=== PATIENT | female | born 1980 | race Caucasian/White ===

== ENCOUNTER 2017-05-06 19:42 | Emergency (ER) | payer OTHER ==
[2017-05-06] MEDS ORDERED: Levalbuterol 0.63MG/3ML NEB* UNIT OF USE INH ONE (20:36)
[2017-05-06] MEDS ORDERED: Ipratropium 0.5MG/2.5ML NEB* 0.5 MG/2.5 ML NEB.SOLN INH ONE (20:38)
--- NOTE | 2017-05-06 21:00 | UC ---
Respiratory Complaint HPI - HPI Summary HPI Summary: 37 yo female with asthma has been ill x 3 weeks has been wheezing cough (productive) ? fever chills malaise fatigue no n/v/d has a script of prednisone which she started about a week ago on 40 mg/d - History of Current Complaint Chief Complaint: UCRespiratory Stated Complaint: URI Time Seen by Provider: 05/06/17 20:25 Hx Obtained From: Patient Hx Last Menstrual Period: 10 days ago Onset/Duration: Gradual Onset, Lasting Weeks Timing: Constant Severity Initially: Mild Severity Currently: Moderate Pain Intensity: 3 Pain Scale Used: 0-10 Numeric Character: Cough: Productive Aggravating Factors: Exertion, Deep Breaths, Recumbent Position Alleviating Factors: Bronchodilator Associated Signs And Symptoms: Positive: Fever - ?, Chills, Wheezing - Allergies/Home Medications Allergies/Adverse Reactions: Allergies Allergy/AdvReac Type Severity Reaction Status Date / Time No Known Allergies Allergy Verified 05/06/17 20:07 PMH/Surg Hx/FS Hx/Imm Hx Previously Healthy: Yes Respiratory History: Asthma, Bronchitis - Surgical History Surgical History: Yes Surgery Procedure, Year, and Place: ABLASION - Family History Known Family History: Positive: Respiratory Disease - Social History Alcohol Use: Occasionally Substance Use Type: None Smoking Status (MU): Never Smoked Tobacco Review of Systems Constitutional: Fever - ?, Chills, Fatigue Skin: Negative Eyes: Negative ENT: Negative Respiratory: Cough Cardiovascular: Negative Gastrointestinal: Negative Genitourinary: Negative Motor: Negative Neurovascular: Negative Musculoskeletal: Negative Neurological: Negative Psychological: Negative Is Patient Immunocompromised?: No All Other Systems Reviewed And Are Negative: Yes Physical Exam Triage Information Reviewed: Yes Appearance: Well-Appearing, No Pain Distress, Well-Nourished Vital Signs: Initial Vital Signs Temp 98.2 F 05/06/17 20:03 Pulse 102 05/06/17 20:03 Resp 18 05/06/17 20:03 BP 133/72 05/06/17 20:03 Pulse Ox 100 05/06/17 20:03 Vital Signs Reviewed: Yes Eyes: Positive: Conjunctiva Clear ENT: Positive: Hearing grossly normal, Pharyngeal erythema, TMs normal, Uvula midline. Negative: Nasal congestion, Nasal drainage, TM bulging, TM dull, TM red, Tonsillar swelling, Tonsillar exudate, Trismus, Muffled voice, Hoarse voice , Dental tenderness, Sinus tenderness Neck: Positive: Supple, Nontender Respiratory: Positive: No respiratory distress, No accessory muscle use, Wheezing Cardiovascular: Positive: RRR, No Murmur Bowel Sounds: Positive: Present Musculoskeletal: Positive: ROM Intact, No Edema Neurological: Positive: Alert Psychological Exam: Normal Skin Exam: Normal UC Diagnostic Evaluation - Laboratory O2 Sat by Pulse Oximetry: 100 - normal/not hyposix - Radiology Xray Interpretation: No Acute Changes Radiology Interpretation Completed By: Radiologist Re-Evaluation - Re-Evaluation First Eval Re-Evaluation Time: 21:53 Change: Improved - lungs CTA Respiratory Course/Dx - Differential Dx/Diagnosis Provider Diagnoses: acute bronchitis with bronchospasm Discharge - Discharge Plan Condition: Stable Disposition: HOME Prescriptions: Azithromycin TAB* [Zithromax TAB*] 250 mg PO DAILY #4 tab Patient Education Materials: Acute Bronchitis (ED) Referrals: Srini Shrestha MD [Primary Care Provider] - 4 Days Additional Instructions: continue prednisone 40mg/day see your MD Wednesday recheck for new or worsening symptoms
--- NOTE | 2017-05-06 21:23 | RAD ---
INDICATION: Productive cough. Wheezing. COMPARISON: None TECHNIQUE: PA and lateral dual-energy views were obtained. FINDINGS: Bones/Soft Tissues: There are no acute bony findings. Cardiomediastinal: The cardiomediastinal silhouette is normal. Lungs: There are no infiltrates. Pleura: There are no pleural effusions. Other: None IMPRESSION: NO ACTIVE DISEASE.
[2017-05-06] MEDS ORDERED: Azithromycin TAB* 250 MG PO ONE (21:49)
[2017-05-06 22:01] VITALS: BP 129/72
== END 2017-05-06 22:00 | disposition home or self-care (01) ==
LOC: UCEAST 19:42
DX: J20.9 Acute bronchitis, unspecified (principal); J45.909 Unspecified asthma, uncomplicated
CPT/HCPCS: 71020; 99213; A9270-GY; G0463; J7614; J7644

== ENCOUNTER 2017-09-06 10:00 | Emergency (ER) | payer OTHER ==
[2017-09-06 10:52] VITALS: BP 120/72
--- NOTE | 2017-09-06 11:38 | UC ---
Josh Dewey Thomas, [facility] on 09/06/17 at 1117 . Skin Complaint HPI - HPI Summary HPI Summary: In Room Note: The patient is a 37 year old female complaining of a rash to her back and left rib area that began four days ago. She describes a burning, itchy pain. The pain is aggravated by touch. The patient also complains of cough and congestion. The patient denies sinus pain, nausea, vomiting, and diarrhea. She recently used a massage roller on her back. She has a history of contact dermatitis, but she describes this rash as dissimilar to her prior contact dermatitis. Note: The patient has a 4-day history of back and left rib area rash. Vital signs are stable: afebrile, Pulse Ox 100, 5/10 discomfort. Non-smoker. Occasional alcohol. Visit history: SVT with ablation. Noncontributory to present complaint. She has taken Zyrtect. She has a history of asthma. Nurses Note: Pt stated last rash started on back last 09/02 (states used a massage roller in area last Wednesday night). Pt states found spot on front L rib area. Tried hydrocortisone twice a day, states did not help. Pt states rash/ spots still there but now painful. Pt did have allergy shot this AM. 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 - History of Current Complaint Chief Complaint: UCRash Time Seen by Provider: 09/06/17 10:50 Stated Complaint: RASH Hx Obtained From: Patient Hx Last Menstrual Period: 08/12/17 Onset/Duration: Lasting Days - 4, Still Present Timing: Constant Current Severity: Moderate Pain Intensity: 5 Pain Scale Used: 0-10 Numeric Location: Other - Back, left rib area Character: Pruritus, Pain Aggravating Factor(s): Touch Alleviating Factor(s): Nothing Associated Signs & Symptoms: Positive: Cough, Rash. Negative: Nausea, Vomiting , Fever - Allergy/Home Medications Allergies/Adverse Reactions: Allergies Allergy/AdvReac Type Severity Reaction Status Date / Time No Known Allergies Allergy Verified 09/06/17 10:38 Review of Systems Skin: Rash Respiratory: Cough, Other - Congestion Is Patient Immunocompromised?: No All Other Systems Reviewed And Are Negative: Yes PMH/Surg Hx/FS Hx/Imm Hx Endocrine History: Other Other Endocrine History: Allergies Cardiovascular History: Other Other Cardiovascular History: SVT with ablation Respiratory History: Asthma Neurological History: Other Other Neurological History: Possible focal seizures - Surgical History Surgical History: Yes Surgery Procedure, Year, and Place: CARDIAC ABLASION 2004 - Family History Known Family History: Positive: Cardiac Disease, Diabetes, Respiratory Disease - Social History Occupation: Employed Full-time Lives: With Family Alcohol Use: Occasionally Substance Use Type: None Smoking Status (MU): Never Smoked Tobacco Household Exposure Type: Cigarettes Physical Exam - Summary Physical Exam Summary: Appearance: The patient is well-appearing, is in no pain distress, and is well- nourished. Eyes: Conjunctiva are clear. ENT: The hearing is grossly normal, the pharynx is normal, and the TMs are normal. There is no muffled or hoarse voice. Neck: The neck is supple and there is no lymphadenopathy. Respiratory: The chest is nontender. The lungs are clear, there are normal breath sounds, and there is no respiratory distress. Cardiovascular: Heart is regular rate and rhythm. There is no murmur. Abdomen: The abdomen is soft and nontender. There is no organomegaly. Bowel sounds: present Musculoskeletal: Strength is intact. The patient moves all extremities. Neurological: The patient is alert. Psychological: The patient displays age appropriate behavior Skin: At the level of T10 to T8 on the diagonal, there is an 8 cm oval rash by 2 cm wide that is erythematous and raised. To the left front of the abdomen there is a scattered rash approximately 3 cm by 2 cm, which is also raised. It deras to light touch and there are no vesicles. The rash is confined to one side of the body. Triage Information Reviewed: Yes Vital Signs: Initial Vital Signs Temp 98.6 F 09/06/17 10:41 Pulse 68 09/06/17 10:41 Resp 18 09/06/17 10:41 BP 120/72 09/06/17 10:41 Pulse Ox 100 09/06/17 10:41 Vital Signs Reviewed: Yes Course/Dx - Course Course Of Treatment: The patient is a 37 year old female complaining of a rash to her back and left rib area that began four days ago. She describes a burning , itchy pain. The patient has singles. I prescribed her Valtrex TID for several days. She will follow up if she sees any signs of infection or increasing pain. - Differential Diagnoses - Skin Complaint Differential Diagnoses: Contact Dermatitis, Other - Zoster - Diagnoses Provider Diagnoses: Zoster, left thorax abdomen Discharge - Sign-Out/Discharge Documenting (check all that apply): Discharge - patient is discharged home - Discharge Plan Condition: Stable Disposition: HOME Prescriptions: ValACYclovir (*) [Valtrex 1 GM(*)] 1 gm PO TID #21 tab MDD 3 Patient Education Materials: Shingles (ED) Referrals: Srini hSrestha MD [Primary Care Provider] - Additional Instructions: WE DISCUSSED: 1. You have shingles. 2. I have started you on Valtrex, one pill, 3 times a day for 7 days. 3. Ibuprofen and acetaminophen for pain. 4. Keep covered to decrease burning discomfort. 5. Follow up at any time for increased pain, redness, temperature or change in rash. This can take 2-6 weeks to go away but needs to be re-evaluated for any significant change. The documentation as recorded by the Josh monte Thomas accurately reflects the service I personally performed and the decisions made by me, Leon Portillo MD.
== END 2017-09-06 11:25 | disposition home or self-care (01) ==
LOC: UCEAST 10:00
DX: B02.9 Zoster without complications (principal); R05 Cough
CPT/HCPCS: 99212; G0463

== ENCOUNTER 2017-10-02 15:47 | Emergency (ER) | payer OTHER ==
[2017-10-02 15:56] VITALS: BP 116/71
--- NOTE | 2017-10-02 16:20 | UC ---
Respiratory Complaint HPI - HPI Summary HPI Summary: ONSET OF DRY HACKING COUGH YESTERDAY. PATIENT WITH HISTORY OF ASTHMA. INHALERS NOT HELPING. NO WHEEZE, NO FEVER. SHE HAS FATIGUE AND CHILLS WELL HEADACHE AND BODY ACHES/JOINT PAIN. UP-TO-DATE FLU SHOT THIS SEASON. - History of Current Complaint Chief Complaint: UCGeneralIllness Stated Complaint: COUGH/ BODY ACHES Time Seen by Provider: 10/02/17 16:12 Hx Obtained From: Patient Hx Last Menstrual Period: [id number] Onset/Duration: Gradual Onset, Lasting Days - 1 day Timing: Constant Severity Initially: Moderate Severity Currently: Moderate Pain Intensity: 3 Pain Scale Used: 0-10 Numeric Character: Cough: Nonproductive Aggravating Factors: Nothing Alleviating Factors: Nothing Associated Signs And Symptoms: Positive: Chills, URI. Negative: Dyspnea, Wheezing - Allergies/Home Medications Allergies/Adverse Reactions: Allergies Allergy/AdvReac Type Severity Reaction Status Date / Time No Known Allergies Allergy Verified 10/02/17 15:56 PMH/Surg Hx/FS Hx/Imm Hx - Additional Past Medical History Additional PMH: ALLERGIES Cardiovascular History: Cardiac Disease Respiratory History: Asthma - Surgical History Surgical History: Yes Surgery Procedure, Year, and Place: CARDIAC ABLASION 2004 - Family History Known Family History: Positive: Cardiac Disease, Hypertension, Diabetes, Respiratory Disease - Social History Alcohol Use: Occasionally Substance Use Type: None Smoking Status (MU): Never Smoked Tobacco Household Exposure Type: Cigarettes Review of Systems Constitutional: Fatigue Respiratory: Cough Cardiovascular: Negative Gastrointestinal: Negative Musculoskeletal: Arthralgia, Myalgia Neurological: Headache All Other Systems Reviewed And Are Negative: Yes Physical Exam Triage Information Reviewed: Yes Appearance: Well-Appearing, No Pain Distress, Well-Nourished Vital Signs: Initial Vital Signs Temp 99.1 F 10/02/17 15:52 Pulse 97 10/02/17 15:52 Resp 18 10/02/17 15:52 BP 116/71 10/02/17 15:52 Pulse Ox 98 10/02/17 15:52 Vital Signs Reviewed: Yes Eyes: Positive: Conjunctiva Clear ENT: Positive: Hearing grossly normal, Pharynx normal, TMs normal Neck: Positive: Supple, Nontender, No Lymphadenopathy Respiratory Exam: Normal Cardiovascular Exam: Normal Abdomen Description: Positive: Soft Musculoskeletal: Positive: No Edema Neurological: Positive: Alert Psychological: Positive: Age Appropriate Behavior Skin: Negative: rashes UC Diagnostic Evaluation - Laboratory O2 Sat by Pulse Oximetry: 98 Diagnostic Studies Comment: FLU B POSITIVE Respiratory Course/Dx - Differential Dx/Diagnosis Provider Diagnoses: INFLUENZA B Discharge - Sign-Out/Discharge Documenting (check all that apply): Discharge/Admit/Transfer - Discharge Plan Condition: Stable Disposition: HOME Prescriptions: Oseltamivir CAP* [Tamiflu CAP*] 75 mg PO BID #10 cap predniSONE TAB* [Deltasone TAB*] 50 mg PO DAILY #5 tab Patient Education Materials: Asthma (ED), Influenza (ED) Referrals: Srini Shrestha MD [Primary Care Provider] - If Needed Additional Instructions: SWAB POSITIVE FOR INFLUENZA B. TAMIFLU TWICE DAILY FOR 5 DAYS. OTC MEDS NEEDED FOR FEVER, BODY ACHES. STAY WELL HYDRATED AND RESTED. SEEK FOLLOW-UP IF YOU ARE NOT IMPROVING EXPECTED. WILL ALSO GIVE PREDNISONE TO COVER FOR ANY ASTHMA SYMPTOMS. CONTINUE YOUR INHALERS AT HOME PRESCRIBED. FOLLOW-UP WITH YOUR PCP IF NEEDED. - Billing Disposition and Condition Condition: STABLE Disposition: HOME
== END 2017-10-02 16:45 | disposition home or self-care (01) ==
LOC: UCEAST 15:47
DX: J10.1 Influenza due to other identified influenza virus with other respiratory manifestations (principal); I51.9 Heart disease, unspecified; J45.909 Unspecified asthma, uncomplicated
CPT/HCPCS: 87502; 99212; G0463

== ENCOUNTER 2017-12-26 09:07 | Emergency (ER) | payer OTHER ==
[2017-12-26 09:20] VITALS: BP 125/71
--- NOTE | 2017-12-26 09:28 | UC ---
Upper Extremity HPI - HPI Summary HPI Summary: This is lavell Krause documenting for attending Dr. Nancy Mcdonough MD. The patient is a 37 y/o F presenting to [facility] c/o bending her right third metacarpal on a children's slide yesterday at 15:00 causing pain and swelling to the hand rated 3/10 in severity, which has increased since onset. She describes the bending as "wrenching" and "hooking" her finger. The pain associated is described as an aching and pressure, not sharp, and there is not any numbness or tingling in the finger. The movement and ROM of the finger is less than normal, but she is able to bend the fingers, make a fist, and oppose the fingers with her thumb, although moving the finger side to side causes the most pain. She has been treating the swelling pain with intermittent icing and Ibuprofen to some relief. - History of Current Complaint Stated Complaint: RIGHT HAND PAIN Time Seen by Provider: 12/26/17 09:12 Hx Obtained From: Patient Hx Last Menstrual Period: 12/05/17 Onset/Duration: Sudden Onset, Lasting Hours - started yesterday, Still Present Pain Intensity: 3 Pain Scale Used: 0-10 Numeric Character: Aching - and pressure Aggravating Factor(s): Movement - moving side to side Alleviating Factor(s): Ice, OTC Meds - Ibuprofen Associated Signs And Symptoms: Positive: Swelling, Other - decreased ROM. Negative: Numbness/Tingling Body - Head: 1 - swelling and pain in right thrid finger - Allergies/Home Medications Allergies/Adverse Reactions: Allergies Allergy/AdvReac Type Severity Reaction Status Date / Time No Known Allergies Allergy Verified 10/02/17 15:56 PMH/Surg Hx/FS Hx/Imm Hx Other Endocrine History: NEGATIVE: diabetes Other Cardiovascular History: NEGATIVE: HTN - Surgical History Surgical History: Yes Surgery Procedure, Year, and Place: CARDIAC ABLASION 2004 - Family History Known Family History: Positive: Cardiac Disease, Hypertension, Diabetes, Respiratory Disease - Social History Alcohol Use: Occasionally Substance Use Type: None Smoking Status (MU): Never Smoked Tobacco Household Exposure Type: Cigarettes Review of Systems Motor: Decreased ROM - in fingers of right hand, Other - pain and swelling in right hand, especially at right third finger Neurovascular: Negative - numbness and tingling All Other Systems Reviewed And Are Negative: Yes Physical Exam - Summary Physical Exam Summary: Appearance: Well-appearing, Well-nourished Skin: Warm Eyes: Normal ENT: Normal Neck: Supple, nontender Respiratory: Clear to auscultation Cardiovascular: Regular rate, regular rhythm. Normal S1, S2. Abdomen: Soft, nontender Musculoskeletal: Normal, Strength/ROM Intact. Swollen and tenderness over third metacarpal. Generalized swelling on dorsal of right hand. Radial pulse 2+ on right. Neurological: Normal, A&Ox3 Psychiatric: Normal General: No acute distress Triage Information Reviewed: Yes Vital Signs: Initial Vital Signs Temp 99.3 F 12/26/17 09:12 Pulse 104 12/26/17 09:12 Resp 16 12/26/17 09:12 BP 125/71 12/26/17 09:12 Pulse Ox 97 12/26/17 09:12 Vital Signs Reviewed: Yes Diagnostics - Radiology Right Hand XR Xray Interpretation: No Acute Changes - 1. Soft tissue swelling over the dorsum of the hand most prominent at level of the metacarpal phalangeal joints. Negative for fracture or malalignment. Negative for significant arthropathic change. [facility] physician has reviewed this report. Radiology Interpretation Completed By: Radiologist Re-Evaluation - Re-Evaluation First Eval Re-Evaluation Time: 10:25 Change: Unchanged Comment: I spoke with the pt about negative XR results. She will be discharged home. She is agreeable with this plan. Upper Extremity Course/Dx - Differential Dx/Diagnosis Provider Diagnoses: right hand swelling,. right second and third metacarpal contusion Discharge - Sign-Out/Discharge Documenting (check all that apply): Patient Departure - Pt will be discharged home. - Discharge Plan Condition: Stable Disposition: HOME Patient Education Materials: Hand Sprain (ED) Referrals: Srini Shrestha MD [Primary Care Provider] - Additional Instructions: Rest, ice, compression, Elevation and Aleve PRN - Billing Disposition and Condition Condition: STABLE Disposition: Home
--- NOTE | 2017-12-26 10:15 | RAD ---
INDICATION: Pain at the second through fifth metacarpophalangeal joints of the RIGHT hand following injury. COMPARISON: No relevant prior exams available on the [facility] PACS for comparison. TECHNIQUE: AP, lateral, and oblique views RIGHT hand. REPORT AND IMPRESSION: #. Soft tissue swelling over the dorsum of the hand most prominent at level of the metacarpal phalangeal joints. Negative for fracture or malalignment. Negative for significant arthropathic change.
== END 2017-12-26 10:36 | disposition home or self-care (01) ==
LOC: UCEAST 09:07
DX: M79.89 Other specified soft tissue disorders (principal); S60.221A Contusion of right hand, initial encounter; X50.1XXA Overexertion from prolonged static or awkward postures, initial encounter; Y93.9 Activity, unspecified; Y92.9 Unspecified place or not applicable
CPT/HCPCS: 99212; G0463

== ENCOUNTER 2019-03-31 21:05 | Emergency (ER) | payer OTHER ==
--- OUTSIDE RECORDS SUMMARY | 2019-03-31 21:11 | XMS REPORT | Continuity of Care Document ---
:1980 External Reference #:[id number] Author Name Rafaela Heck PAPER [employer] MACHINE OPERATOR-C (transmitted by agent of provider Jonny Felix) Address [address] [place] [address] Care Team Providers Name Role Phone Catrachito Shrestha M.D. Care Team Information Military Lawyer [phone] Problems Active Problems Provider Date Mild persistent asthma Jonny Felix M.D. Onset: 09/26/2018 Uncomplicated moderate persistent Rafaela Uldrich, PAPER [employer] MACHINE OPERATOR-C Onset: 07/22/2017 asthma Exacerbation of moderate persistent Rafaela Venturadrich, PAPER [employer] MACHINE OPERATOR-C Onset: 11/04/2016 asthma Body mass index 30+ - obesity Parveen Silva M.D. Onset: 01/16/2016 Exacerbation of moderate persistent Kenzie Wolfgang, PAPER [employer] MACHINE OPERATOR-C Onset: 08/08/2015 asthma Allergic rhinitis due to animals Kenzie Wolfgang, PAPER [employer] MACHINE OPERATOR-C Onset: 08/08/2015 Allergic rhinitis due to pollen Kenzie Wolfgang, PAPER [employer] MACHINE OPERATOR-C Onset: 08/08/2015 Acute sinusitis Jonny Felix M.D. Onset: 04/01/2015 Uncomplicated moderate persistent Jonny Felix M.D. Onset: 04/01/2015 asthma Body mass index (BMI) 27.0-27.9, Jonny Felix M.D. Onset: 04/01/2015 adult Immunization Jonny Felix M.D. Onset: 04/01/2015 Cough Gabrielle Miller, PH.D, Onset: 08/20/2014 RPA-C Allergic rhinitis Jonny Felix M.D. Onset: 03/19/2014 Allergic asthma without status Jonny Felix M.D. Onset: 03/19/2014 asthmaticus Social History Type Date Description Comments Sex Unknown ETOH Use Currently consumes alcohol once per week Tobacco Use Start: Unknown Patient has never smoked Recreational Drug Use Denies Drug Use Smoking Status Reviewed: 03/29/18 Patient has never smoked Allergies, Adverse Reactions, Alerts Description No Known Drug Allergies Medications Active Medications SIG Qnty Indications Ordering Date Provider Prednisone 40mg for 3 days, qs Z23 Rafaela 03/27/2019 10mg Tablets 30mg for 3 days, Uldrich, P[employer]ER [employer] MACHINE OPERATOR-C 20 mg for 3 days, 10mg for 3 days and 5mg for 2 days Levalbuterol Tartrate take 2 puffs every 15units Rafaela 08/08/2018 4 hours as needed Uldrich, PAPER [employer] MACHINE OPERATOR-C 45mcg/Act Aerosol Qvar Redihaler 2 puff every 12 31.8gm Rafaela 03/29/2018 hour 90 days Uldrich, PAPER [employer] MACHINE OPERATOR-C 80mcg/Act Aerosol supply Xopenex inhale the 72units J45.40 Rafaela 08/15/2015 0.63mg/3ML contents of 1 vial Uldrich, PAPER [employer] MACHINE OPERATOR-C Nebulizer via nebulizer every 4 hours as needed for shortness of breath, wheezing Epipen 2-Nolan used as directed 2units J30.2 Rafaela 04/16/2014 for anaphylaxis Uldrich, PAPER [employer] MACHINE OPERATOR-C 0.3mg/0.3ML Solution Auto-Inject Fluticasone 1 squirt each 3units Jonny Felix, 03/19/2014 Propionate nostril daily 90 M.D. 50mcg/Act day supply Suspension Cyanocobalamin Unknown 1000mcg/ML Solution Cetirizine HCL 1 by mouth every 30tabs Unknown 10mg day Tablets Vitamin D Unknown (Cholecalciferol) 1000Unit Tablets Montelukast Sodium take 1 tablet 90tabs Rafaela 10mg daily Uldrich, PAPER CAP MACHINE OPERATOR-C Tablets Medications Administered in Office Medication SIG Qnty Indications Ordering Provider Date Injection Allergy Injection 09/26/2018 Injection Injection Allergy Injection 06/20/2018 Injection Injection Allergy Injection 06/10/2018 Injection Injection Allergy Injection 05/18/2018 Injection Injection Allergy Injection 04/11/2018 Injection Injection Allergy Injection 03/28/2018 Injection Injection Allergy Injection 02/21/2018 Injection Injection Allergy Injection 02/02/2018 Injection Injection Allergy Injection 01/17/2018 Injection Injection Allergy Injection 01/10/2018 Injection Injection Allergy Injection 12/29/2017 Injection Injection Allergy Injection 12/20/2017 Injection Injection Allergy Injection 12/13/2017 Injection Injection Allergy Injection 11/29/2017 Injection Injection Allergy Injection 11/22/2017 Injection Injection Allergy Injection 11/15/2017 Injection Injection Allergy Injection 11/08/2017 Injection Injection Allergy Injection 09/06/2017 Injection Injection Allergy Injection 08/20/2017 Injection Injection Allergy Injection 07/30/2017 Injection Injection Allergy Injection 07/22/2017 Injection Injection Allergy Injection 06/16/2017 Injection Injection Allergy Injection 04/12/2017 Injection Injection Allergy Injection 03/29/2017 Injection Injection Allergy Injection 03/08/2017 Injection Injection Allergy Injection 02/15/2017 Injection Injection Allergy Injection 02/03/2017 Injection Injection Allergy Injection 01/13/2017 Injection Injection Allergy Injection 01/06/2017 Injection Injection Allergy Injection 12/28/2016 Injection Injection Allergy Injection 12/14/2016 Injection Injection Allergy Injection 12/07/2016 Injection Injection Allergy Injection 11/30/2016 Injection Injection Allergy Injection 11/25/2016 Injection Celestone/Cortisone Jonny Felix M.D. 11/04/2016 [id number] 1 cc Injection Celestone/Cortisone KEMI Boone 11/04/2016 [id number] 1 cc Injection Injection Allergy Injection 10/12/2016 Injection Injection Allergy Injection 09/28/2016 Injection Injection Allergy Injection 09/16/2016 Injection Injection Allergy Injection 09/09/2016 Injection Injection Allergy Injection 08/31/2016 Injection Injection Allergy Injection 08/21/2016 Injection Injection Allergy Injection 08/14/2016 Injection Injection Allergy Injection 08/06/2016 Injection Injection Allergy Injection 07/29/2016 Injection Injection Allergy Injection 07/22/2016 Injection Injection Allergy Injection 07/13/2016 Injection Injection Allergy Injection 07/03/2016 Injection Injection Allergy Injection 06/24/2016 Injection Injection Allergy Injection 06/17/2016 Injection Injection Allergy Injection 06/10/2016 Injection Injection Allergy Injection 02/17/2016 Injection Injection Allergy Injection 02/03/2016 Injection Injection Allergy Injection 01/16/2016 Injection Injection Allergy Injection 01/06/2016 Injection Injection Allergy Injection 12/23/2015 Injection Injection Allergy Injection 12/11/2015 Injection Injection Allergy Injection 11/25/2015 Injection Injection Allergy Injection 11/11/2015 Injection Injection Allergy Injection 10/21/2015 Injection Injection Allergy Injection 10/07/2015 Injection Injection Allergy Injection 09/23/2015 Injection Injection Allergy Injection 09/16/2015 Injection Injection Allergy Injection 09/09/2015 Injection Injection Allergy Injection 09/02/2015 Injection Injection Allergy Injection 07/15/2015 Injection Injection Allergy Injection 05/29/2015 Injection Injection Allergy Injection 05/06/2015 Injection Injection Allergy Injection 04/22/2015 Injection Injection Allergy Injection 04/08/2015 Injection Injection Allergy Injection 03/04/2015 Injection Injection Allergy Injection 02/18/2015 Injection Injection Allergy Injection 01/28/2015 Injection Injection Allergy Injection 01/16/2015 Injection Injection Allergy Injection 01/02/2015 Injection Injection Allergy Injection 12/19/2014 Injection Injection Allergy Injection 12/10/2014 Injection Injection Allergy Injection 12/03/2014 Injection Injection Allergy Injection 11/26/2014 Injection Injection Allergy Injection 11/19/2014 Injection Injection Allergy Injection 11/05/2014 Injection Injection Allergy Injection 10/22/2014 Injection Injection Allergy Injection 10/15/2014 Injection Injection Allergy Injection 10/08/2014 Injection Injection Allergy Injection 10/01/2014 Injection Injection Allergy Injection 09/24/2014 Injection Injection Allergy Injection 09/17/2014 Injection Injection Allergy Injection 09/10/2014 Injection Injection Allergy Injection 09/03/2014 Injection Injection Allergy Injection 08/20/2014 Injection Injection Allergy Injection 08/13/2014 Injection Injection Allergy Injection 08/06/2014 Injection Injection Allergy Injection 07/30/2014 Injection Injection Allergy Injection 07/23/2014 Injection Injection Allergy Injection 07/11/2014 Injection Injection Allergy Injection 07/02/2014 Injection Injection Allergy Injection 06/25/2014 Injection Injection Allergy Injection 06/18/2014 Injection Injection Allergy Injection 06/11/2014 Injection Injection Allergy Injection 06/04/2014 Injection Injection Allergy Injection 05/28/2014 Injection Injection Allergy Injection 05/21/2014 Injection Injection Allergy Injection 05/14/2014 Injection Injection Allergy Injection 05/07/2014 Injection Injection Allergy Injection 04/30/2014 Injection Injection Allergy Injection 04/23/2014 Injection Injection Allergy Injection 04/16/2014 Injection Immunizations CPT Code Status Date Vaccine Lot # 16325 Given 02/05/2015 Pneumococcal Vaccine 74645 Given 04/05/2014 Influenza Vaccine 25545 Given Unknown Pneumococcal Vaccine 03804 Given Unknown Influenza Vaccine 39737 Given Unknown Influenza Vaccine 40885 Given Unknown Influenza Vaccine 33077 Given Unknown Influenza Vaccine Vital Signs Date Vital Result Comment 03/27/2019 11:07am Height 65.5 inches 5'5.50" Weight 197.00 lb Weight 89.359 kg Respiratory Rate 18 /min Heart Rate 90 /min Body Temperature 98.2 F O2 % BldC Oximetry 97 % BP Systolic 113 mmHg BP Diastolic 60 mmHg Asthma Control Test 14 Fractional Exhaled Nitric Oxide 15 BMI (Body Mass Index) 32.3 kg/m2 10/12/2018 10:51am Height 65.5 inches 5'5.50" Weight 195.00 lb Weight 88.452 kg Respiratory Rate 12 /min Heart Rate 78 /min Body Temperature 98.3 F O2 % BldC Oximetry 97 % BP Systolic 97 mmHg BP Diastolic 61 mmHg Asthma Control Test 14 BMI (Body Mass Index) 32.0 kg/m2 Results Description No Information Available Procedures Date Code Description Status 03/27/2019 47464 Nitric Oxide Gas Determination Completed 03/27/2019 82760 Ippb Completed 10/12/2018 10926 Ippb Completed 09/26/2018 58366 Injection Completed 09/26/2018 58703 Nitric Oxide Gas Determination Completed 09/26/2018 78324 Pre PFT Completed Medical Devices Description No Information Available Encounters Type Date Location Provider Dx Diagnosis Office Visit 03/27/2019 Meera Heck Z23 Encounter for 11:00a P[employer]ER [employer] MACHINE OPERATOR-C immunization J30.1 Allergic rhinitis due to pollen J30.2 Other seasonal allergic rhinitis J30.81 Allergic rhinitis due to animal (cat) (dog) hair and dander J30.89 Other allergic rhinitis J45.41 Moderate persistent asthma with (acute) exacerbation Office Visit 10/12/2018 11:00a [facility] Catherine Boone30.1 Allergic PAPER [employer] MACHINE OPERATOR-C rhinitis due to pollen J30.2 Other seasonal allergic rhinitis J30.81 Allergic rhinitis due to animal (cat) (dog) hair and dander J30.89 Other allergic rhinitis J45.41 Moderate persistent asthma with (acute) exacerbation Office Visit 09/26/2018 8:40a [place] Jonny Felix M.D. J30.1 Allergic rhinitis due to pollen J45.30 Mild persistent asthma, uncomplicated Assessments Date Code Description Provider 03/27/2019 Z23 Encounter for immunization Jonny Felix M.D. 03/27/2019 Z23 Encounter for immunization Rafaela Ulniharika, PAPER CAP MACHINE OPERATOR-C 03/27/2019 J30.1 Allergic rhinitis due to pollen Jonny Felix M.D. 03/27/2019 J30.1 Allergic rhinitis due to pollen Rafaela Uldrich, PAPER CAP MACHINE OPERATOR-C 03/27/2019 J30.2 Other seasonal allergic rhinitis Jonny Felix M.D. 03/27/2019 J30.2 Other seasonal allergic rhinitis Rafaela Uldrich, PAPER CAP MACHINE OPERATOR-C 03/27/2019 J30.81 Allergic rhinitis due to animal (cat) (dog) Jonny Felix M.D. hair and dander 03/27/2019 J30.81 Allergic rhinitis due to animal (cat) (dog) Rafaela Uldrich, PAPER CAP MACHINE OPERATOR-C hair and dander 03/27/2019 J30.89 Other allergic rhinitis Rafaela Uldrich, PAPER CAP MACHINE OPERATOR-C 03/27/2019 J45.41 Moderate persistent asthma with (acute) Rafaela Uldrich, PAPER CAP MACHINE OPERATOR-C exacerbation 10/12/2018 J30.1 Allergic rhinitis due to pollen Jonny Felix M.D. 10/12/2018 J30.1 Allergic rhinitis due to pollen Rafaela Uldrich, PAPER CAP MACHINE OPERATOR-C 10/12/2018 J30.2 Other seasonal allergic rhinitis Jonny Felix M.D. 10/12/2018 J30.2 Other seasonal allergic rhinitis Rafaela Uldrich, PAPER CAP MACHINE OPERATOR-C 10/12/2018 J30.81 Allergic rhinitis due to animal (cat) (dog) Jonny Felix M.D. hair and dander 10/12/2018 J30.81 Allergic rhinitis due to animal (cat) (dog) Rafaela Uldrich, PAPER CAP MACHINE OPERATOR-C hair and dander 10/12/2018 J30.89 Other allergic rhinitis Jonny Felix M.D. 10/12/2018 J30.89 Other allergic rhinitis KEMI Boone 10/12/2018 J45.41 Moderate persistent asthma with (acute) KEMI Boone exacerbation 09/26/2018 J30.1 Allergic rhinitis due to pollen Jonny Felix M.D. 09/26/2018 J30.1 Allergic rhinitis due to pollen Jonny Felix M.D. 09/26/2018 J30.1 Allergic rhinitis due to pollen Allergy Injection 09/26/2018 J30.2 Other seasonal allergic rhinitis Jonny Felix M.D. 09/26/2018 J45.30 Mild persistent asthma, uncomplicated Jonny Felix M.D. 09/26/2018 J30.2 Other seasonal allergic rhinitis Allergy Injection 09/26/2018 J30.81 Allergic rhinitis due to animal (cat) (dog) Jonny Felix M.D. hair and dander 09/26/2018 J30.81 Allergic rhinitis due to animal (cat) (dog) Allergy Injection hair and dander 09/26/2018 J30.89 Other allergic rhinitis Jonny Felix M.D. 09/26/2018 J30.89 Other allergic rhinitis Allergy Injection Plan of Treatment Future Appointment(s):04/10/2019 4:20 pm - KEMI Boone at [id number] - [id number] Encounter for cbeasepqasuaX47.1 Allergic rhinitis due to dyqxzeI73.2 Other seasonal allergic inccqubmV77.81 Allergic rhinitis due to animal (cat) (dog) hair and lyanaoC94.89 Other allergic utntegczF25.41 Moderate persistent asthma with (acute) exacerbationNew Medication:Prednisone 10 mgFollow up:2 weeks with ENORecommendations:Continue all medications as prescribed.Refrain from wearing perfumes/scented colognes while visitingour office. Start the prednisone today IPPB now Continue Symbicort 2 puffs twice a day Spiriva 1puff daily Fluticasone 2 sprays daily Montelukast 1 daily Cetirizine 1 daily. Use the nebulizer as needed with the ipratropium Functional Status Description No Information Available Mental Status Description No Information Available Referrals Description No Information Available
[2019-03-31 21:16] VITALS: BP 134/74
[2019-03-31] MEDS ORDERED: Albuterol 2.5 MG/3 ML NEB.SOL* (0.083%) INH ONE (21:22)
[2019-03-31] MEDS ORDERED: Ipratropium 0.5MG/2.5ML NEB* 0.5 MG/2.5 ML NEB.SOLN INH ONE ×2 (21:22→22:06)
--- NOTE | 2019-03-31 21:38 | UC ---
Asthma HPI - HPI Summary HPI Summary: The patient is a 39-year-old female that began to experience an asthma exacerbation 4-5 days ago. She saw her asthma specialist on 03/27 and was started on a prolonged prednisone taper. She is currently on 30 mg of prednisone a day. She denies any fever. She initially felt better on her prednisone taper that today things started to be worse with chest tightness. - History of Current Complaint Chief Complaint: UCAsthma Stated Complaint: ASTHMA ISSUE Time Seen by Provider: 03/31/19 21:07 Hx Obtained From: Patient Hx Last Menstrual Period: 03/07/19 Onset/Duration: Gradual Onset, Lasting Days Timing: Constant Initial Severity: Mild Current Severity: Moderate Pain Intensity: 0 Pain Scale Used: 0-10 Numeric Location/Character: Cough (Nonproductive) Aggravating Factor(s): Exertion, Other - speaking/deep breath Alleviating Factor(s): Inhalers/Nebulizers Associated Signs and Symptoms: Positive: Shortness of Breath. Negative: Calf Pain, Chest Pain, Edema, URI, Sinus Infection - Allergy/Home Medications Allergies/Adverse Reactions: Allergies Allergy/AdvReac Type Severity Reaction Status Date / Time No Known Allergies Allergy Verified 03/31/19 21:15 Home Medications: Home Medications Beclomethasone 40 MCG MDI(NF) [Qvar 40 MCG MDI(NF)] 2 puff PO BID 03/31/19 [ History Confirmed 03/31/19] Cetirizine* [ZyrTEC 10 MG TAB*] 1 tab PO DAILY 03/31/19 [History Confirmed 03/31] predniSONE TAB* [Deltasone 20 MG TAB*] 1 tab PO DAILY 03/31/19 [History Confirmed 03/31/19] PMH/Surg Hx/FS Hx/Imm Hx Previously Healthy: Yes Respiratory History: Asthma - Surgical History Surgical History: Yes Surgery Procedure, Year, and Place: CARDIAC ABLASION 2004 - Family History Known Family History: Positive: Cardiac Disease, Hypertension, Diabetes, Respiratory Disease - Social History Alcohol Use: Weekly Alcohol Amount: once Substance Use Type: None Smoking Status (MU): Never Smoked Tobacco Household Exposure Type: Cigarettes Review of Systems All Other Systems Reviewed And Are Negative: Yes Constitutional: Positive: Negative Skin: Positive: Negative Eyes: Positive: Negative ENT: Positive: Negative Respiratory: Positive: Shortness Of Breath, Cough Cardiovascular: Positive: Negative Gastrointestinal: Positive: Negative Genitourinary: Positive: Negative Motor: Positive: Negative Neurovascular: Positive: Negative Musculoskeletal: Positive: Negative Neurological: Positive: Negative Psychological: Positive: Negative Physical Exam Triage Information Reviewed: Yes Appearance: Well-Appearing, No Pain Distress, Well-Nourished Vital Signs: Initial Vital Signs Temp 99.4 F 03/31/19 21:11 Pulse 103 03/31/19 21:11 Resp 18 03/31/19 21:11 BP 134/74 03/31/19 21:11 Pulse Ox 96 03/31/19 21:11 Vital Signs Reviewed: Yes Eyes: Positive: Conjunctiva Clear ENT: Positive: Hearing grossly normal. Negative: Nasal congestion, Nasal drainage, Trismus, Muffled voice, Hoarse voice, Sinus tenderness Dental Exam: Normal Neck: Positive: Supple Respiratory: Positive: Lungs clear, No respiratory distress, Other: - bronchospastic cough Cardiovascular: Positive: RRR, Tachycardia Musculoskeletal: Positive: ROM Intact, No Edema Neurological: Positive: Alert Psychological Exam: Normal Skin Exam: Normal Re-Evaluation - Re-Evaluation First Eval Re-Evaluation Time: 22:09 Change: Improved - much improved Asthma Course/Dx - Course Course Of Treatment: patient has no desire to increase her prednisone dose will add atrovent to her regimen - Differential Dx/Diagnosis Provider Diagnosis: Asthma attack Discharge ED - Sign-Out/Discharge Documenting (check all that apply): Patient Departure All imaging exams completed and their final reports reviewed: No Studies - Discharge Plan Condition: Stable Disposition: HOME Prescriptions: Ipratropium 0.5MG/2.5ML NEB* [Atrovent 0.5 MG NEB.YOBANY*] 0.5 mg INH Q4H PRN #30 meb.soln MDD 4 PRN Reason: Sob/Wheezing Patient Education Materials: Asthma (DC) Referrals: Srini Shrestha MD [Primary Care Provider] - If Needed Additional Instructions: call your asthma specialist tomorrow to discuss your prednisone taper - Billing Disposition and Condition Condition: STABLE Disposition: Home
== END 2019-03-31 22:16 | disposition home or self-care (01) ==
LOC: UCEAST 21:05
DX: J45.909 Unspecified asthma, uncomplicated (principal)
CPT/HCPCS: 99212; G0463

== ENCOUNTER 2019-07-02 10:00 | Emergency (ER) | payer OTHER ==
--- OUTSIDE RECORDS SUMMARY | 2019-07-02 10:05 | XMS REPORT | Summary of Care ---
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 [facility] Pap smear for cervical cancer screening; [place] [address] [place] [address] Screening-pulmonary TB [phone] Allergies No Known Allergiesdocumented as of this encounter (statuses as of 05/17/2019) Medications Medication Sig Dispensed Refills Start End Date Status Date Cetirizine HCl Take 1 Tab by 0 Active (ZYRTEC ALLERGY) 10 mouth DAILY. MG Oral Cap montelukast Take 10 mg by 0 Active (SINGULAIR) 10 MG mouth DAILY. Oral Tab cyanocobalamin Take 1,000 mcg 0 Active (CYANOCOBALAMIN) by mouth. 100 MCG Oral Tab Vitamin D, Take by mouth. 0 Active Cholecalciferol, 1000 UNITS Oral Tab levalbuterol HFA Take 1-2 Puffs 0 Active (XOPENEX HFA) 45 by inhalation MCG/ACT Inhalation EVERY FOUR Aerosol HOURS NEEDED. mometasone Clarendon 1 Clarendon 0 Active (NASONEX) 50 in nose DAILY. MCG/ACT Nasal Suspension Tiotropium Rocky Face Take by 0 Active Monohydrate inhalation. (SPIRIVA RESPIMAT) 1.25 MCG/ACT Inhalation Aero Soln budesonide-formoter Take 2 INHL by 0 Active ol fumarate inhalation (SYMBICORT) 160-4.5 TWICE DAILY. MCG/ACT Inhalation Aerosol pneumococcal Inject 0.5 mL 1 vial 0 05/17/20 Discontinued polysaccharide within a muscle 01 23 (Therapy (PNEUMOVAX,PPSV23) ONE TIME. Completed) 25 MCG/0.5ML Injection InjectionIndication s: Need for vaccination documented as of this encounter (statuses as of 05/17/2019) Active Problems Problem Noted Date Lactose intolerance 01/24/2015 Moderate persistent asthma 01/24/2015 Overview: Several ER visits in the past none in the last [address] Elvira Estes [facility] Seasonal allergies 01/24/2015 Overview: Allergy shots in [place] Vitamin B12 deficiency 01/24/2015 Hypovitaminosis D 01/24/2015 documented as of this encounter (statuses as of 05/17/2019) Immunizations Name Administration Dates Next Due Influenza (IM) Preservative Free 04/24/2015 Influenza (IM) W/Pres 03/07/2016 PNEUMOCOCCAL POLYSACCHARIDE VACCINE 03/02/2018 Pneumococcal Conjugate(13 Valent) 01/24/2015 documented as of this encounter Social History Tobacco Use Types Packs/Day Years Used Date Never Smoker Smokeless Tobacco: Never Used Alcohol Use Drinks/Week oz/Week Comments Yes 1 Glasses of wine 1.0 Sex Assigned at Date Recorded Not on file Job Start Date Occupation Industry Not on file Not on file Not on file Travel History Travel Start Travel End No recent travel history available. documented as of this encounter Last Filed Vital Signs Vital Sign Reading Time Taken Comments Blood Pressure 110/60 05/17/2019 8:58 AM EST Pulse 81 05/17/2019 8:58 AM EST Temperature - - Respiratory Rate - - Oxygen Saturation 96% 05/17/2019 8:58 AM EST Inhaled Oxygen Concentration - - Weight 87.1 kg (192 lb) 05/17/2019 8:58 AM EST Height 160 cm (5' 3") 05/17/2019 8:58 AM EST Body Mass Index 34.01 05/17/2019 8:58 AM EST documented in this encounter Patient Instructions Patient InstructionsTsering Young FNP - 05/17/2019 9:00 AM ESTForm completed for foster care PPD read 05/19/19 documented in this encounter Progress Notes Tsering Young FNP - 05/17/2019 9:00 AM EST SUBJECTIVE: 39-y.o. female for routine Pap and checkup. Needs form completed for Foster Care - PPD due Current Outpatient Medications Medication Sig budesonide-formoterol fumarate (SYMBICORT) 160-4.5 MCG/ACT Inhalation Aerosol Take 2 INHL by inhalation TWICE DAILY. Cetirizine HCl (ZYRTEC ALLERGY) 10 MG Oral Cap Take 1 Tab by mouth DAILY. cyanocobalamin (CYANOCOBALAMIN) 100 MCG Oral Tab Take 1,000 mcg by mouth. levalbuterol HFA (XOPENEX HFA) 45 MCG/ACT Inhalation Aerosol Take 1-2 Puffs by inhalation EVERY FOUR HOURS NEEDED. mometasone (NASONEX) 50 MCG/ACT Nasal Suspension Clarendon 1 Clarendon in nose DAILY. montelukast (SINGULAIR) 10 MG Oral Tab Take 10 mg by mouth DAILY. Tiotropium [place] Face Monohydrate (SPIRIVA RESPIMAT) 1.25 MCG/ACT Inhalation Aero Soln Take by inhalation. Vitamin D, Cholecalciferol, 1000 UNITS Oral Tab Take by mouth. No current facility-administered medications for this visit. Allergies: Patient has no known allergies. No LMP recorded. ROS: Feeling well. No dyspnea or chest pain on exertion. No abdominal pain, change in bowel habits, black or bloody stools. No urinary tract symptoms. 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 No neurological complaints. OBJECTIVE: The patient appears well, alert, oriented x 3, in no distress. BP 110/60 | Pulse 81 | Ht 5' 3" (1.6 m) | Wt 192 lb (87.1 kg) | SpO2 96% | BMI 34.01 kg/m ENT normal. Neck supple. No adenopathy or thyromegaly. EULOGIO. Lungs are clear, good air entry, no wheezes, rhonchi or rales. S1 and S2 normal, no murmurs, regular rate and rhythm. Abdomen soft withouttenderness, guarding, mass or organomegaly. Extremities show no edema, normal peripheral pulses. Neurological is normal, no focal findings. BREAST EXAM: breasts appear normal, no suspicious masses, no skin or nipple changes or axillary nodes PELVIC EXAM: normal external genitalia, vulva, vagina, cervix, uterus and adnexa , PAP: Pap smear done today, thin-prep method, HPV test ASSESSMENT: ICD-9-CM ICD-10-CM 1. Well female exam with routine gynecological exam V72.31 Z01.419 2. Normal breast exam V70.9 Z00.00 3. Pap smear for cervical cancer screening V76.2 Z12.4 PAP SMEAR THINPREP AND HPV 4. Screening-pulmonary TB V74.1 Z11.1 PPD PLAN: pap smear obtained and sent Form completed for foster care PPD read 05/19/19 documented in this encounter Plan of Treatment Date Type Specialty Care Team Description 05/19/2019 Nurse/Clinical Support Internal Medicine Name Type Priority Associated Diagnoses Date/Time PPD POCT Routine Screening-pulmonary TB 05/17/2019 9:21 AM EST Name Type Priority Associated Diagnoses Order Schedule PAP SMEAR THINPREP AND Lab Routine Pap smear for cervical Ordered: 2018 HPV cancer screening Health Maintenance Due Date Last Done Comments DTaP/Tdap/Td Vaccines (1 - 02/10/1992 Tdap) INFLUENZA VACCINE (#1) 2019 03/07/2016, 04/24/2015 PAP SMEAR 04/07/2019 04/07/2016, 04/07/2016, 04/07/2016, Additional history exists DEPRESSION SCREENING 05/17/2020 05/17/2019 PNEUMOCOCCAL 0-64 YRS Completed 03/02/2018, 01/24/2015 HEPATITIS A IMMUNIZATION Aged Out No longer eligible SERIES based on patient's age to complete this topic HPV IMMUNIZATION SERIES Aged Out No longer eligible based on patient's age to complete this topic MENINGOCOCCAL VACCINE IMM Aged Out No longer eligible based on patient's age to complete this topic documented as of this encounter Results Not on filedocumented in this encounter Visit Diagnoses Diagnosis Well female exam with routine gynecological exam Routine gynecological examination Normal breast exam Reserved for inherently not codable concepts WITHOUT codable children Pap smear for cervical cancer screening Screening for malignant neoplasm of the cervix Screening-pulmonary TB Screening examination for pulmonary tuberculosis documented in this encounter Insurance Payer Benefit Plan / Subscriber ID Effective Dates Phone Address Type Group AETNA COMMERCIAL AETNA xxxxxxxxxx 2014-Present Aetna Guarantor Name Account Type Relation to Date of Phone Billing Patient Address Edmund Ruiz Personal/Family 1980 [address] [facility] (Home) [place], [place] [phone] (Work) documented as of this encounter
--- OUTSIDE RECORDS SUMMARY | 2019-07-02 10:05 | XMS REPORT | Continuity of Care Document ---
:1980 External Reference #:[id number] Author Name Rafaela Heck [employer] Address [address] [place] [id number] Care Team Providers Name Role Phone Catrachito Shrestha M.D. Care Team Information Dairy Farmer [phone] Problems Active Problems Provider Date Mild persistent asthma Jonny Felix M.D. Onset: 09/26/2018 Uncomplicated moderate persistent Rafaela Uldrich, [employer] Onset: 07/22/2017 asthma Exacerbation of moderate persistent Rafaela Uldrich, [employer] Onset: 11/04/2016 asthma Body mass index 30+ - obesity Parveen Silva M.D. Onset: 01/16/2016 Exacerbation of moderate persistent Kenzie Wolfgang, [employer] Onset: 08/08/2015 asthma Allergic rhinitis due to animals Kenzie Wolfgang, [employer] Onset: 08/08/2015 Allergic rhinitis due to pollen Kenzie Wolfgang, [employer] Onset: 08/08/2015 Acute sinusitis Jonny Felix M.D. [...] Medications SIG Qnty Indications Ordering Date Provider Spiriva Handihaler inhale the contents 90caps Rafaela 05/24/2019 of 1 capsule daily KEMI eHck 18mcg Capsules Symbicort 2 inhalations am&pm 30.6gm J30.1 Rafaela 04/10/2019 MANA Heck-Helio 160-4.5mcg/Act Aerosol Levalbuterol take 2 puffs every 15units Rafaela 08/08/2018 Tartrate 4 hours as needed MANA Heck-Helio 45mcg/Act Aerosol Xopenex inhale the contents 72units J45.40 Rafaela 08/15/2015 0.63mg/3ML of 1 vial via MANA Heck-Helio Nebulizer nebulizer every 4 hours as needed for shortness of breath, wheezing Fluticasone 1 squirt each 3units Jonny Felix, 03/19/2014 Propionate nostril daily 90 M.D. 50mcg/Act day supply Suspension Cetirizine HCL 1 by mouth every 30tabs Unknown 10mg day Tablets Vitamin D Unknown (Cholecalciferol) 1000Unit Tablets Montelukast Sodium Take 1 Tablet Daily 90tabs Rafaela MANA Heck-C 10mg Tablets Vitamin B12 once per day Unknown 1000mcg Tablets ER Medications Administered in Office Medication SIG Qnty [...] 11/25/2016 Injection Celestone/Cortisone Jonny Felix M.D. 11/04/2016 [id number] 1 cc Injection Celestone/Cortisone IZABEL BooneP-Helio 11/04/2016 [id number] 1 cc Injection Injection Allergy Injection 10/12/2016 [...] CPT Code Status Date Vaccine Lot # 82550 Given 02/05/2015 Pneumococcal Vaccine 95399 Given 04/05/2014 Influenza Vaccine 24267 Given Unknown Pneumococcal Vaccine 81560 Given Unknown Influenza Vaccine 96236 Given Unknown Influenza Vaccine 10234 Given Unknown Influenza Vaccine 98380 Given Unknown Influenza Vaccine 15694 Given Unknown Influenza Vaccine 49974 Given Unknown Influenza Vaccine 3 Years Old + Vital Signs Date Vital Result Comment 06/12/2019 10:05am Height 65.5 inches 5'5.50" Weight 195.00 lb Weight 88.452 kg Respiratory Rate 18 /min Heart Rate 81 /min O2 % BldC Oximetry 99 % BP Systolic 113 mmHg BP Diastolic 76 mmHg Asthma Control Test 21 Fractional Exhaled Nitric Oxide 13 BMI (Body Mass Index) 32.0 kg/m2 04/10/2019 4:25pm Height 65.5 inches 5'5.50" Weight 195.00 lb Weight 88.452 kg Respiratory Rate 12 /min Heart Rate 85 /min O2 % BldC Oximetry 99 % BP Systolic 131 mmHg BP Diastolic 91 mmHg BMI (Body Mass Index) 32.0 kg/m2 Results Description No Information Available Procedures Date Code Description Status 06/12/2019 88965 Nitric Oxide Gas Determination Completed 06/12/2019 54921 Pre PFT Completed 03/27/2019 96073 Nitric Oxide Gas Determination Completed 03/27/2019 00955 Ippb Completed Medical Devices Description No Information Available Encounters Type Date Location Provider Dx Diagnosis Office Visit 04/10/2019 Meera Heck J30.1 Allergic rhinitis due 4:20p [employer] to pollen J30.2 Other seasonal allergic rhinitis J30.81 Allergic rhinitis due to animal (cat) (dog) hair and dander J30.89 Other allergic rhinitis J45.41 Moderate persistent asthma with (acute) exacerbation Office Visit 03/27/2019 11:00a Meera Heck Z23 Encounter for [employer] immunization J30.1 Allergic rhinitis due to pollen J30.2 Other seasonal allergic rhinitis J30.81 Allergic rhinitis due to animal (cat) (dog) hair and dander J30.89 Other allergic rhinitis J45.41 Moderate persistent asthma with (acute) exacerbation Assessments Date Code Description Provider 06/12/2019 J45.30 Mild persistent asthma, uncomplicated Rafaela Heck, [employer] [facility] 06/12/2019 J30.1 Allergic rhinitis due to pollen Rafaela Heck, [employer] 06/12/2019 J30.2 Other seasonal allergic rhinitis Rafaela Heck [employer] 06/12/2019 J30.89 Other allergic rhinitis Rafaela Heck [employer] 06/12/2019 J30.81 Allergic rhinitis due to animal (cat) (dog) Rafaela Uldrich, [employer] hair and dander 04/10/2019 J30.1 Allergic rhinitis due to pollen Jonny Felix M.D. 04/10/2019 J30.1 Allergic rhinitis due to pollen Rafaela Uldrich, [employer] 04/10/2019 J30.2 Other seasonal allergic rhinitis Jonny Felix M.D. 04/10/2019 J30.2 Other seasonal allergic rhinitis Rafaela Uldrich, [employer] 04/10/2019 J30.81 Allergic rhinitis due to animal (cat) (dog) Jonny Felix M.D. hair and dander 04/10/2019 J30.81 Allergic rhinitis due to animal (cat) (dog) Rafaela Uldrich, [employer] hair and dander 04/10/2019 J30.89 Other allergic rhinitis Jonny Felix M.D. 04/10/2019 J30.89 Other allergic rhinitis Rafaela Uldrich, [employer] 04/10/2019 J45.41 Moderate persistent asthma with (acute) Rafaela Uldrich, [employer] exacerbation 03/27/2019 Z23 Encounter for immunization Jonny Felix M.D. 03/27/2019 Z23 Encounter for immunization Rafaela Ulniharika, [employer] 03/27/2019 J30.1 Allergic rhinitis due to pollen Jonny Felix M.D. 03/27/2019 J30.1 Allergic rhinitis due to pollen Rafaela Uldrich, [employer] 03/27/2019 J30.2 Other seasonal allergic rhinitis Jonny Felix M.D. 03/27/2019 J30.2 Other seasonal allergic rhinitis Rafaela Uldrich, [employer] 03/27/2019 J30.81 Allergic rhinitis due to animal (cat) (dog) Jonny Felix M.D. hair and dander 03/27/2019 J30.81 Allergic rhinitis due to animal (cat) (dog) Rafaela Uldrich, [employer] hair and dander 03/27/2019 J30.89 Other allergic rhinitis KEMI Boone 03/27/2019 J45.41 Moderate persistent asthma with (acute) KEMI Boone exacerbation Plan of Treatment 06/12/2019 - MANA Boone-CJ45.30 Mild persistent asthma, hpiesohclfyhgJ94.1 Allergic rhinitis due to ruagkwS18.2 Other seasonal allergic accvclceH47.89 Other allergic gnxlswdvD69.81 Allergic rhinitis due to animal ( cat) (dog) hair and danderFollow up:6 months with enoRecommendations:Continue all medications as prescribed.Refrain from wearing perfumes/scented colognes while visitingour office. Continue Symbicort 160 mcg 2 puffs twice a day Stop the Spiriva 1 puff daily Fluticasone 2 sprays daily Montelukast 1 daily Cetirizine 1 daily. Use the nebulizer as needed with the ipratropium Functional Status Description No Information Available Mental Status Description No Information Available Referrals Description No Information Available
--- OUTSIDE RECORDS SUMMARY | 2019-07-02 10:05 | XMS REPORT | Continuity of Care Document ---
:1980 External Reference #:[id number] Author Name Rafaela Heck PNEUMATIC HOIST OPERATOR-C (transmitted by agent of provider Jonny Felix) Address [address] [place] [address] Care Team Providers Name Role Phone Catrachito Shrestha M.D. Care Team Information Drip Box Tender [phone] Problems Active Problems Provider Date Mild persistent asthma Jonny Felix M.D. Onset: 09/26/2018 Uncomplicated moderate persistent Rafaela Uldrich, [employer] OPERATOR[employer] Onset: 07/22/2017 asthma Exacerbation of moderate persistent Rafaela Uldrich, PNEUM[employer] HOIST OPERATOR[employer]C Onset: 11/04/2016 asthma Body mass index 30+ - obesity Parveen Silva M.D. Onset: 01/16/2016 Exacerbation of moderate persistent Kenzie Wolfgang, PNE[employer]IST OPERATOR[employer] Onset: 08/08/2015 asthma Allergic rhinitis due to animals Kenzie Wolfgang, [employer] OPERATOR[employer] Onset: 08/08/2015 Allergic rhinitis due to pollen Kenzie Wolfgang, P[employer]IC [employer]IST OPERATOR[employer]C Onset: 08/08/2015 Acute sinusitis Jonny Felix [...] 90caps Rafaela 05/24/2019 of 1 capsule daily MANA Heck-C 18mcg Capsules Symbicort 2 inhalations am&pm 30.6gm J30.1 Rafaela 04/10/2019 MANA Heck-C 160-4.5mcg/Act Aerosol Levalbuterol take 2 puffs every 15units Rafaela 08/08/2018 Tartrate 4 hours as needed MANA Heck-C 45mcg/Act Aerosol Xopenex inhale the contents 72units J45.40 Rafaela 08/15/2015 0.63mg/3ML of 1 vial via MANA Heck-C Nebulizer nebulizer every 4 hours as needed [...] 11/25/2016 Injection Celestone/Cortisone Jonny Felix M.D. 11/04/2016 [id number] 1 cc Injection Celestone/Cortisone KEMI Boone 11/04/2016 [id number] 1 cc Injection Injection Allergy Injection 10/12/2016 [...] CPT Code Status Date Vaccine Lot # 86822 Given 02/05/2015 Pneumococcal Vaccine 28350 Given 04/05/2014 Influenza Vaccine 49420 Given Unknown Pneumococcal Vaccine 03118 Given Unknown Influenza Vaccine 90386 Given Unknown Influenza Vaccine 27197 Given Unknown Influenza Vaccine 32490 Given Unknown Influenza Vaccine 79875 Given Unknown Influenza Vaccine 35678 Given Unknown Influenza Vaccine 3 Years Old [...] Available Procedures Date Code Description Status 06/12/2019 62716 Nitric Oxide Gas Determination Completed 06/12/2019 22658 Nitric Oxide Gas Determination Completed 06/12/2019 62468 Pre PFT Completed 03/27/2019 06568 Nitric Oxide Gas Determination Completed 03/27/2019 32814 Ippb Completed Medical Devices Description No Information Available Encounters Type Date Location Provider Dx Diagnosis Office Visit 06/12/2019 Catherine Wright45.30 Mild persistent asthma, 10:00a P[employer] OPERATOR-[facility] uncomplicated J30.1 Allergic rhinitis due to pollen J30.2 Other seasonal allergic rhinitis J30.89 Other allergic rhinitis J30.81 Allergic rhinitis due to animal (cat) (dog) hair and dander Office Visit 04/10/2019 4:20p Meera Heck J30.1 Allergic rhinitis P[employer] OPERATOR[employer] due to pollen J30.2 Other seasonal allergic rhinitis J30.81 Allergic rhinitis due to animal (cat) (dog) hair and dander J30.89 Other allergic rhinitis J45.41 Moderate persistent asthma with (acute) exacerbation Office Visit 03/27/2019 11:00a Meera Heck Z23 Encounter for PNEUMATIC HOIST OPERATOR-C immunization J30.1 Allergic rhinitis due to pollen J30.2 Other seasonal allergic rhinitis J30.81 Allergic rhinitis due to animal (cat) (dog) hair and dander J30.89 Other allergic rhinitis J45.41 Moderate persistent asthma with (acute) exacerbation Assessments Date Code Description Provider 06/12/2019 J45.30 Mild persistent asthma, uncomplicated Jonny Felix M.D. 06/12/2019 J45.30 Mild persistent asthma, uncomplicated Rafaela Uldrich, PNEUMATIC HOIST OPERATOR -C 06/12/2019 J30.1 Allergic rhinitis due to pollen Jonny Felix M.D. 06/12/2019 J30.1 Allergic rhinitis due to pollen Rafaela Uldrich, PNEUMATIC HOIST OPERATOR-C 06/12/2019 J30.2 Other seasonal allergic rhinitis Jonny Felix M.D. 06/12/2019 J30.2 Other seasonal allergic rhinitis Rafaela Uldrich, PNEUMATIC HOIST OPERATOR-C 06/12/2019 J30.89 Other allergic rhinitis Jonny Felix M.D. 06/12/2019 J30.89 Other allergic rhinitis Rafaela Ulich, PNEUMATIC HOIST OPERATOR-C 06/12/2019 J30.81 Allergic rhinitis due to animal (cat) (dog) Jonny Felix M.D. hair and dander 06/12/2019 J30.81 Allergic rhinitis due to animal (cat) (dog) Rafaela Uldrich, PNE[employer]IC HOIST OPERATOR[employer] hair and dander 04/10/2019 J30.1 Allergic rhinitis due to pollen Jonny Felix M.D. 04/10/2019 J30.1 Allergic rhinitis due to pollen Rafeala Ulich, PNEUMATIC HOIST OPERATOR-C 04/10/2019 J30.2 Other seasonal allergic rhinitis Jonny Felix M.D. 04/10/2019 J30.2 Other seasonal allergic rhinitis Rafaela Uldrich, PNEUM[employer]IC HOIST OPERATOR[employer]C 04/10/2019 J30.81 Allergic rhinitis due to animal (cat) (dog) Jonny Felix M.D. hair and dander 04/10/2019 J30.81 Allergic rhinitis due to animal (cat) (dog) Rafaela Uldrich, [employer]PER[employer] hair and dander 04/10/2019 J30.89 Other allergic rhinitis Jonny Felix M.D. 04/10/2019 J30.89 Other allergic rhinitis Rafaela Uldrich, PNEUM[employer]IC HOIST OPERATOR-C 04/10/2019 J45.41 Moderate persistent asthma with (acute) Rafaela Heck, [employer] OPERATOR[employer] exacerbation 03/27/2019 Z23 Encounter for immunization Jonny Felix M.D. 03/27/2019 Z23 Encounter for immunization IZABEL BooneP-C 03/27/2019 J30.1 Allergic rhinitis due to pollen Jonny Felix M.D. 03/27/2019 J30.1 Allergic rhinitis due to pollen MANA Boone-C 03/27/2019 J30.2 Other seasonal allergic rhinitis Jonny Felix M.D. 03/27/2019 J30.2 Other seasonal allergic rhinitis IZABEL BooneP-C 03/27/2019 J30.81 Allergic rhinitis due to animal (cat) (dog) Jonny Felix M.D. hair and dander 03/27/2019 J30.81 Allergic rhinitis due to animal (cat) (dog) IZABEL BooneP-C hair and dander 03/27/2019 J30.89 Other allergic rhinitis IZABEL BooneP-C 03/27/2019 J45.41 Moderate persistent asthma with (acute) Rafaela Heck PNEUMATIC HOIST OPERATOR-C exacerbation Plan of Treatment Future Appointment(s):12/11/2019 9:00 am - MANA Boone-C at [place] Functional Status Description No Information Available Mental Status Description No Information Available Referrals Description No Information Available
[2019-07-02 10:19] VITALS: BP 108/68
--- NOTE | 2019-07-02 10:29 | UC ---
Throat Pain/Nasal Castillo HPI - HPI Summary HPI Summary: 39 yo female presents with cough. She tells me that over the last 2 days she has felt fatigued, body aches, sinus congestion, and dry cough. Yesterday states her "asthma started acting up" with increased wheezing - relieved with inhalers. This morning she did a nebulizer treatment and feels much better. She tells me that she is concerned about the flu today as she has been around individuals dx'd with the flu. Nothing OTC for symptoms. Denies fever, chills, sore throat, SOB, chest pain, n/v. - History of Current Complaint Chief Complaint: UCRespiratory Stated Complaint: COUGH Time Seen by Provider: 07/02/19 10:29 Hx Obtained From: Patient Hx Last Menstrual Period: 1 month ago Onset/Duration: Sudden Onset Pain Intensity: 0 - Allergies/Home Medications Allergies/Adverse Reactions: Allergies Allergy/AdvReac Type Severity Reaction Status Date / Time No Known Allergies Allergy Verified 07/02/19 10:20 Home Medications: Home Medications Budesonide/Formote 160/4.5(NF) [Symbicort 160/4.5 (NF)] 2 puff INH BID 07/02/19 [History Confirmed 07/02/19] PMH/Surg Hx/FS Hx/Imm Hx Respiratory History: Asthma - Surgical History Surgical History: Yes Surgery Procedure, Year, and Place: CARDIAC ABLASION 2004 - Family History Known Family History: Positive: Cardiac Disease, Hypertension, Diabetes, Respiratory Disease - Social History Lives: With Family Alcohol Use: Weekly Alcohol Amount: once Substance Use Type: None Smoking Status (MU): Never Smoked Tobacco Household Exposure Type: Cigarettes Review of Systems All Other Systems Reviewed And Are Negative: No Constitutional: Positive: Fatigue Skin: Positive: Negative Eyes: Positive: Negative ENT: Positive: Negative Respiratory: Positive: Cough Cardiovascular: Positive: Negative Gastrointestinal: Positive: Negative Neurological: Positive: Negative Psychological: Positive: Negative Physical Exam - Summary Physical Exam Summary: GENERAL: NAD. WDWN. No pain distress. SKIN: No rashes, sores, lesions, or open wounds. HEENT: Head: AT/NC Eyes: EOM intact. Conjunctiva clear without inflammation or discharge. Ears: Hearing grossly normal. TMs intact, no bulging, erythema, or edema. Nose: Nasal mucosa pink and moist. NTTP maxillary and frontal sinus. Throat: Posterior oropharynx without exudates, erythema, or tonsillar enlargement. Uvula midline. NECK: Supple. Nontender. No lymphadenopathy. CHEST: CTAB. No r/r/w. No accessory muscle use. Breathing comfortably and in no distress. CV: RRR. Pulses intact. Cap refill <2seconds NEURO: Alert. PSYCH: Age appropriate behavior. Triage Information Reviewed: Yes Vital Signs: Initial Vital Signs Temp 98.9 F 07/02/19 10:17 Pulse 73 07/02/19 10:17 Resp 18 07/02/19 10:17 BP 108/68 07/02/19 10:17 Pulse Ox 98 07/02/19 10:17 Vital Signs Reviewed: Yes Throat Pain/Nasal Course/Dx - Course Course Of Treatment: POC flu negative. Suspect viral URI with asthma exacerbation. 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 - Differential Dx/Diagnosis Provider Diagnosis: Asthma exacerbation Discharge ED - Sign-Out/Discharge Documenting (check all that apply): Patient Departure All imaging exams completed and their final reports reviewed: No Studies - Discharge Plan Condition: Stable Disposition: HOME Patient Education Materials: Asthma (ED) Referrals: Srini Shrestha MD [Primary Care Provider] - Additional Instructions: If you develop a fever, shortness of breath, chest pain, new or worsening symptoms - please call your PCP or go to the ED immediately. Your flu test was negative today. I suspect you are having an asthma exacerbation due to an upper respiratory virus. -- please continue to use your asthma medications as directed and be rechecked if symptoms do not improve or worsen - Billing Disposition and Condition Condition: STABLE Disposition: Home
[2019-07-02 10:35] LABS: Influenza A Molecular NEGATIVE (Negative); Influenza B Molecular NEGATIVE (Negative)
== END 2019-07-02 10:53 | disposition home or self-care (01) ==
LOC: UCEAST 10:00
DX: J45.901 Unspecified asthma with (acute) exacerbation (principal); Z79.51 Long term (current) use of inhaled steroids
CPT/HCPCS: 99211; G0463

== ENCOUNTER 2019-08-16 10:59 | Emergency (ER) | payer OTHER ==
[2019-08-16 11:47] VITALS: BP 100/68
--- NOTE | 2019-08-16 12:21 | UC ---
General HPI - HPI Summary HPI Summary: 6 days of URI symptoms - sore throat has since resolved. No has a lot of facial pressure and congestion - worse on the right. No dental pain. No fever. Has tried netti pot, sudafed, ibuprofen tylenol cold/flu and warm compresses. Has some chills and low grade temp 100. Meds; reviewed - History of Current Complaint Chief Complaint: UCGeneralIllness Stated Complaint: SINUS ISSUES Time Seen by Provider: 08/16/19 11:44 Hx Last Menstrual Period: [id number] Pain Intensity: 6 - Allergy/Home Medications Allergies/Adverse Reactions: Allergies Allergy/AdvReac Type Severity Reaction Status Date / Time No Known Allergies Allergy Verified 08/16/19 11:48 Home Medications: Home Medications Albuterol 2.5MG/3ML (0.083%)* [Ventolin 2.5 MG/3 ML NEB.YOBANY*] 2.5 mg INH Q6H PRN #45 neb.yobany 08/03/15 [Rx Confirmed 08/16/19] Levalbuterol HCl [Xopenex] 0.63 mg IN SEE INSTRUCTIONS PRN 08/03/15 [History Confirmed 08/16/19] Montelukast Sodium TAB* [Singulair 5 mg TAB*] 5 mg PO DAILY 08/03/15 [History Confirmed 08/16/19] Cetirizine* [ZyrTEC 10 MG TAB*] 1 tab PO DAILY 03/31/19 [History Confirmed 08/15] Ipratropium 0.5MG/2.5ML NEB* [Atrovent 0.5 MG NEB.YOBANY*] 0.5 mg INH Q4H PRN #30 meb.soln MDD 4 03/31/19 [Rx Confirmed 08/16/19] Budesonide/Formote 160/4.5(NF) [Symbicort 160/4.5 (NF)] 2 puff INH BID 07/02/19 [History Confirmed 08/16/19] Amoxicillin/Clavulanate TAB* [Augmentin TAB 875*] 875 mg PO BID #10 tab [Rx] Tiotropium [place] [Spiriva Respimat] 4 gm INH DAILY PRN 08/16/19 [History] PMH/Surg Hx/FS Hx/Imm Hx Previously Healthy: Yes - Surgical History Surgical History: Yes Surgery Procedure, Year, and Place: CARDIAC ABLASION 2004 - Family History Known Family History: Positive: Cardiac Disease, Hypertension, Diabetes, Respiratory Disease - Social History Alcohol Use: Weekly Alcohol Amount: once Substance Use Type: None Smoking Status (MU): Never Smoked Tobacco Household Exposure Type: Cigarettes Review of Systems All Other Systems Reviewed And Are Negative: Yes ENT: Positive: Nasal Discharge, Sinus Congestion, Sinus Pain/Tenderness Physical Exam Triage Information Reviewed: Yes Appearance: Well-Appearing Vital Signs: Initial Vital Signs Temp 98.2 F 08/16/19 11:43 Pulse 89 08/16/19 11:43 Resp 18 08/16/19 11:43 BP 100/68 08/16/19 11:43 Pulse Ox 99 08/16/19 11:43 ENT: Positive: Pharyngeal erythema, Nasal congestion, Nasal drainage, Sinus tenderness - over right maxilla, Other - right TM: erythematous, no bulging or fluid left TM: clear fluid Neck: Positive: Supple, Nontender Respiratory: Positive: Lungs clear, Normal breath sounds Cardiovascular: Positive: RRR, No Murmur Course/Dx - Course Course Of Treatment: This is a 39 yr old with sinus congestion and tenderness Sinusitis Doing a lot of OTC treatment with mild relief Acute sinusitis, discussed likely viral Plan Continue supportive care as you are doing. Would also include a nasal spray, flonase daily to regimen If symptoms persist or worsen over the next 24-48 hours then I would start augmentin as prescribed IF symptoms persist or worsen despite taking augmentin, recommend follow up with PCP or return to urgent care - Diagnoses Provider Diagnosis: Sinusitis Discharge ED - Sign-Out/Discharge Documenting (check all that apply): Patient Departure All imaging exams completed and their final reports reviewed: No Studies - Discharge Plan Condition: Good Disposition: HOME Prescriptions: Amoxicillin/Clavulanate TAB* [Augmentin TAB 875*] 875 mg PO BID #10 tab Patient Education Materials: Sinusitis (ED) Referrals: Srini Shrestha MD [Primary Care Provider] - Additional Instructions: Continue supportive care as you are doing. Would also include a nasal spray, flonase daily to regimen If symptoms persist or worsen over the next 24-48 hours then I would start augmentin as prescribed IF symptoms persist or worsen despite taking augmentin, recommend follow up with PCP or return to urgent care - Billing Disposition and Condition Condition: GOOD Disposition: Home
== END 2019-08-16 12:25 | disposition home or self-care (01) ==
LOC: UCEAST 10:59
DX: J32.9 Chronic sinusitis, unspecified (principal)
CPT/HCPCS: 99212; G0463